=== PATIENT | male | born 1970 | race Asian ===

== ENCOUNTER 2017-04-06 13:03 | Emergency (ER) | payer OTHER ==
[~2017-04-06] VITALS: Ht 167.6 cm; Wt 81.5 kg
[2017-04-06] MEDS ORDERED: METF500T4 PO (13:26)
[2017-04-06 13:27] LABS: GLUCOSE,POINT OF CARE 222 MG/DL (70-110)
[2017-04-06 14:01] LABS: INFLUENZA TYPE B NEGATIVE FOR TYPE B (NEGATIVE)
[2017-04-06 14:30] VITALS: BP 141/98
[2017-04-06] MEDS ORDERED: OSELTAMIVIR PHOSPHATE 75 MG CAPSULE PO ONE (14:30)
[2017-04-06] MEDS ORDERED: IBUPROFEN 800 MG TABLET PO ONE (14:30)
== END 2017-04-06 15:08 | disposition home or self-care (01) ==
LOC: EMS 13:05
DX: J11.1 Influenza due to unidentified influenza virus with other respiratory manifestations (principal); E11.9 Type 2 diabetes mellitus without complications; Z79.4 Long term (current) use of insulin
CPT/HCPCS: 82962; 87804; 99284